=== PATIENT | male | born 1995 | race Caucasian/White ===

== ENCOUNTER 2023-06-02 08:45 | Outpatient (CLI) | payer OTHER ==
--- NOTE | 2023-06-02 15:04 | XRAY Report ---
PROCEDURE: Hip BILAT INDICATIONS: BILAT HIP PAIN TECHNIQUE: 2 view(s) of the hip were acquired. COMPARISON: MRI of the left hip dated 09/17/2022 FINDINGS: Bones: No fractures or dislocations. No suspicious bony lesions. The visualized pelvic ring appear s intact. Soft tissues: No suspicious soft tissue calcifications or masses. IMPRESSION: No acute bony abnormality. If there remains a high clinical concern for fracture, consider cross-sect ional imaging now. If pain persists, consider repeat x-ray in 10-14 days or cross-sectional imaging. Reviewed by: Sienna Hansen MD on 06/02/2023 3:03 PM PST Approved by: Sienna Hansen MD on 06/02/2023 3:03 PM PST Station ID: [id number]
== END 2023-06-02 08:46 | disposition home or self-care (01) ==
LOC: DI.WOS 08:45
PROVIDERS: ATTEND Physician Assistant Surgical
DX: M24.851 Other specific joint derangements of right hip, not elsewhere classified (principal); M25.551 Pain in right hip

== ENCOUNTER 2023-11-04 10:26 | Outpatient (CLI) | payer OTHER ==
--- NOTE | 2023-11-04 11:35 | Sleep Patient Instructions ---
Sleep Center Visit Summary - Patient Visit Information Reason for Visit: Initial consult for evaluation of sleep disordered breathing and other sleep issues. - Patient Instructions Instructions Attached: Sleep Study Additional Instructions: You will be completing a sleep study, either an in-lab polysomnography (PSG) or home sleep study (HST). You will follow-up in the sleep care office after the sleep study is completed to hear the results and talk about therapy, if needed. You will be called by our office staff to schedule this appointment, but you may contact us with any questions. - Clinic Information Contact: [facility] [address] [place] [address] [email or web address] T: [phone]
--- NOTE | 2023-11-04 11:38 | SLEEP CARE CONSULTATION ---
Information from patient questionnaire entered by Angela Duque. I have reviewed and concur with the information entered by Angela Duque. This document represents the service I personally performed and the decisions made by me, Joy Lee ARNP. History of Present Illness Service Date and Time: 11/04/2023 1026 Reason for Visit: New patient Chief Complaint: reports: Unrefreshed sleep, Snoring, Excessive daytime sleepiness, Fatigue, Frequent awakenings at night Date of Onset: 2019 Usual bedtime: 1999 Time it takes to fall asleep: 20MIN Snores at night: Yes Observed to quit breathing while asleep: Yes Sleeps alone due to snoring: Yes Number of times waking at night: 3 Reasons for waking at night: reports: Choking, Gasping for air, Other (UNKNOWN) Toss, Turn, or Twitch while sleeping: Yes Recalls having dreams: Yes Usually gets out of bed at: 0530 Feels refreshed in the morning: No Morning headache: Yes Sleepy or fatigued during the day: Yes Ever fallen asleep while driving: Yes Takes day naps: Yes Dreams during day naps: Yes Prior sleep studies: No Additional HPI information: I had the pleasure of seeing BLAZE PRADO today regarding the possibility of him having a sleep disorder. His current complaints are excessive daytime sleepiness, fatigue, frequent night awakenings, snoring and unrefreshed sleep. He says he is always tired and cannot drive very long without getting drowsy. He twitches at night in his sleep according to who is worried about him. He says he wakes up throughout night, sometimes gasping for air. He does snore loud enough that his will sleep in separate room. The patient tells me that he normally goes to bed around 8 pm, and it takes him approximately 20 minutes to fall asleep. He has been told that he snores loudly and irregularly at night. He has not been observed to stop breathing in his sleep. His bed partner has to sleep in another room due to the loudness of his snoring. He can recall waking up on the average of 2-3 times during the night. His had noted more wake-ups that he does not remember. Most of the time he wakes up because of unknown reasons and with a very dry throat. He has occasionally awakened for his own snoring, choking, and having to gasp for air. There is a lot of tossing and turning in his sleep. Generally he can recall having dreams. He usually wakes up at 0530 and does not feel refreshed. He usually does have a morning headache about 3-4 days a week. They resolve by mid-morning without medication. During the day he complains of feeling sleepy and fatigued. He has fallen asleep while driving and has gone out of the [place], no accident. He usually naps for about 60 minutes during his lunch hour during the day. If he naps, upon falling asleep during the day he reports having vivid dreams. There is no somniloquy (sleep talking) or somnambulism (sleep walking). He reports having impaired concentration during the day. - Parasomnia Symptoms Ever been unable to move upon waking from sleep: Yes Walks in sleep: No Talks in sleep: No Ever acted out dreams in sleep: Yes Ever felt weak in the knees when startled or emotional: Yes Bothered by creepy, crawly, restless sensations in legs: Yes Problems with memory or concentration: Yes (both) Subjective Initial Pelham Sleepiness Scale score: 24 (11/03/23) Past Medical History Past Medical History: reports: Other (bilateral carpal tunnel) Social History The patient's occupation is a [employer]. Patient is and lives in . Have you smoked in the past 12 months: Yes Cigarettes per day (20/pack): 10 Years of smokin Quit date: 09/2023 Smoking Pack Years: 0.5 Alcohol use: Yes Alcohol amount and frequency: 2 DRINKS TWICE A MONTH Caffeine use: Yes Caffeine amount and frequency: 2 CANS DAILY Family History Family history of sleep disordered breathing: No Allergies and Home Medications Known drug allergies: No Drug allergies reviewed: Yes Home medication list reviewed: Yes (has lotion and anti-inflammatory for carpal tunnel - not taking) Allergy and home medication list: Allergies No Known Drug Allergies Allergy (Verified 11/04/23 10:47) Home Medications Medication Instructions Recorded Confirmed Last Taken Type No Known Home Medications 11/04/23 11/04/23 Unknown History Review of Systems Weight gain over past 5 years: 5 Weight loss over past 5 years: 5 Cardiovascular: denies: high blood pressure Gastrointestinal: reports: diarrhea, abdominal pain Neurological: reports: headaches, disorientation, gait or balance problems Psychiatric: denies: anxiety, depression Ear/Nose/Throat: reports: dry mouth/throat, wisdom teeth removed. denies: tonsillectomy Endocrine: reports: sluggishness, unexplained weakness Musculoskeletal: reports: joint pain, back pain, muscle pain or cramping, mobility problems Physical Exam Vital signs obtained and entered by: ANGELA Webster MA Blood Pressure: 130/69 (LEFT ARM) Cuff size: regular Heart Rate: 66 O2 Saturation: 98 Height: 5 ft 5 in Weight: 167 lb 6.4 oz (boots/fatigues) Body Mass Index: 27.8 BMI Classification: Overweight Neck circumference: 15 Nostrils: patent to airflow Mouth and throat: narrow oropharynx Soft palate: long Hard palate: normal Uvula: normal Uvula visualization: 50% Mallampati Class II Tongue: enlarged in size with teeth nazario on lateral edges Tonsils: small Neck: normal w/o lymphadenopathy or thyromegaly Heart: regular rate and rhythm Lungs: clear bilaterally Impression and Plan 1. Suspected Obstructive Sleep Apnea-Hypopnea Syndrome, as suggested by a history of loud and irregular snoring, gasping or choking in sleep, morning headache, unrefreshed sleep, cognitive impairment, and excessive daytime sleepiness. Narrow oropharynx and obesity are common predisposing factors for obstructive sleep apnea-hypopnea syndrome. I recommend proceeding to polysomnography to confirm the diagnosis and to assess severity. If the patient has significant sleep disordered breathing, a manual CPAP titration study will also be performed to find the optimal treatment pressure. I informed the patient of what the sleep studies involve and after some discussion, obtained agreement to proceed. The pathophysiology of obstructive sleep apnea-hypopnea syndrome was discussed with the patient and health risks of cardiovascular and cerebrovascular disease if not treated. Risks of drowsy driving discussed in detail and patient advised to avoid long distance driving and to hook puller at the first sign of drowsiness. Patient agreed to plan. * Schedule polysomnography * Avoid long distance driving or driving when feeling sleepy. * Avoid alcohol, sedative and muscle relaxant around bedtime. * Attempt to lose weight. * Review instructions provided by trained office staff on how to prepare for the sleep study. * Return for follow-up after sleep study completed. Counseling Topics: Weight loss health impact Plan: PSG/HST and followup Visit Type: In Office Time Spent with Patient (minutes): 30 Provider Statement: I spent 100% of the Face to Face Visit with the patient with greater than 50% spent counseling the patient and coordination of care.
[2023-11-04 11:43] VITALS: BP 130/69; O2SAT 98
== END 2023-11-04 10:27 | disposition home or self-care (01) ==
LOC: SC 10:26
PROVIDERS: ATTEND Nurse Practitioner Family
DX: R06.83 Snoring (principal); R51.9 Headache, unspecified; G47.8 Other sleep disorders; R41.89 Other symptoms and signs involving cognitive functions and awareness; G47.10 Hypersomnia, unspecified
CPT/HCPCS: 99203; 99212

== ENCOUNTER 2023-11-11 11:15 | Outpatient (CLI) | payer OTHER | END 2023-11-11 11:16 | disposition home or self-care (01) | LOC: SC 11:15 | PROVIDERS: ATTEND Nurse Practitioner Family | DX: R09.02 Hypoxemia (principal) | CPT/HCPCS: 95806 ==

== ENCOUNTER 2023-12-10 08:54 | Outpatient (CLI) | payer OTHER ==
--- NOTE | 2023-12-10 09:28 | Sleep Patient Instructions ---
Sleep Center Visit Summary - Patient Visit Information Reason for Visit: Sleep study follow-up - Patient Instructions Additional Instructions: Your sleep study today was negative for significant sleep disordered breathing. However, you did have elevated respiratory episodes when sleeping on your back. You should avoid sleeping on your back to control these respiratory episodes. You were found to have episodes of snoring. There are different ways to control snoring including weight loss, oral devices made by a dentist or surgical options through ENT specialist. You should not use oral devices that do not fit properly because they can affect your bite. You should also check insurance coverage of oral devices for snoring because they may not be cover well. You may obtain a referral to an ENT specialist through your primary provider. You will be completing a sleep study in-lab polysomnography with possible MSLT the next day if you qualify for further evaluation of your sleep. You will follow-up in the sleep care office after the sleep study is completed to hear the results and talk about therapy, if needed. You will be called by our office staff to schedule this appointment, but you may contact us with any questions. - Clinic Information Contact: [facility] [address] [place] [address] [email or web address] T: [phone]
[2023-12-10 09:37] VITALS: BP 139/91; O2SAT 98
--- NOTE | 2023-12-10 09:37 | SLEEP CARE CONSULTATION ---
Information from patient questionnaire entered by Angela Duque. I have reviewed and concur with the information entered by Angela Duque. This document represents the service I personally performed and the decisions made by , Joy Lee ARNP. History of Present Illness Service Date and Time: 12/10/2023 0854 Initial [place] Sleepiness Scale score: 24 (11/03/23) Current [place] Sleepiness Scale score: 23 (12/10/23) Additional HPI information: BLAZE PRADO returns for follow up and results of the recently performed home sleep study done on 11/11/23. The patient was informed of the following findings: No significant sleep disordered breathing with an average AHI of 3.9 and zach oxygen saturation of 87%. His supine AHI was mildly elevated at 6.1. I explained the pathophysiology behind obstructive sleep apnea. Patient does not have sleep apnea and was advised how weight gain could increase the risk of developing sleep apnea in the future. I strongly encouraged the patient to lose weight. Patient does not have significant sleep disordered breathing but has elevated AHI in supine position so advised positional therapy. Methods to achieve positional management therapy were discussed; such as, positioning with pillows, wearing a T-shirt with tennis balls sewn into the back or commercially available products. Patient has moderate snoring. Snoring can be reduced by weight loss. Weight loss is best achieved with diet consult. Patient instructed to contact PCP for referral. Snoring can also be treated with an oral appliance from a dentist. Advised to check insurance coverage. In addition, an ENT evaluation can be do to see if other treatment is indicated. Patient counseled not drink alcohol less than 4 hours before bedtime as it can increase snoring and apnea. Patient was cautioned about risks of drowsy driving until sleepiness symptoms resolve. Sleep Study - Results Type of Sleep Study: Home sleep study (COMPLETED 11/11/23) Prior sleep studies: No Polysomnography/Home Sleep Study results: Physician Impression: The quality of the study is fair due to partial loss of pulse oximetry signal. The length of the study is adequate (> 240 minutes). Please also see the tabulated and graphic data. 1. No significant sleep disordered breathing with an AHI of 3.9/hr and zach SaO2 of 87%. During the study, the patient had 9 apneas (9 obstructive, 0 central, 0 mixed) and 23 hypopneas. The longest episode lasted 190.0 seconds. The respiratory events occurred only during supine sleep (supine AHI was 6.1 and non-supine, 0.00). 2. Hypoxemia (ICD-10 R09.02), minimal, with the lowest oxygen saturation of 87 % and 2.6 minutes with SaO2 under 90%. Baseline oxygen saturation was normal (Average oxygen saturation was 94%). Allergies and Home Medications Known drug allergies: No Drug allergies reviewed: Yes Home medication list reviewed: Yes (no changes) Allergy and home medication list: Allergies No Known Drug Allergies Allergy (Verified 12/10/23 08:56) Review of Systems Review of systems same as previous: Yes (NO CHANGE) Physical Exam Vital signs obtained and entered by: ANGELA Webster MA Blood Pressure: 139/91 (LEFT ARM) Cuff size: regular Heart Rate: 71 O2 Saturation: 98 Height: 5 ft 5 in Weight: 155 lb Weight change since last visit: 12 lb loss Body Mass Index: 25.7 BMI Classification: Overweight Impression and Plan 1. Excessive daytime sleepiness. Patient states he has severe daytime sleepiness and is falling asleep at work. He has a lot of drowsy driving and will "blackout "sometimes when driving. He says he can kind of feel a narrowing of his vision which tells him he will fall asleep. He cannot keep himself from falling asleep at these times. His [place] score is 23/24. His HST was fair due to partial loss of pulse oximetry. 2. Suspected Obstructive Sleep Apnea-Hypopnea Syndrome, as suggested by a histor y of loud and irregular snoring, observed cessation of breath while asleep, gasping or choking in sleep, morning headache, frequent awakening during the night, unrefreshed sleep, and excessive daytime sleepiness. I recommend proceeding to polysomnography to confirm the diagnosis and to assess severity. I also will add an MSLT to rule out possible narcolepsy which is suggested by his history. I obtained agreement to proceed. The pathophysiology of obstructive sleep apnea-hypopnea syndrome was discussed with the patient and health risks of cardiovascular and cerebrovascular disease if not treated. Risks of drowsy driving discussed in detail and patient advised to avoid long distance driving and to candy puller at the first sign of drowsiness. Patient agreed to plan. 3. Snoring but no significant sleep disordered breathing. However, his supine AHI was elevated and he should avoid sleeping supine. Patient advised that often weight loss will reduce snoring as well as apnea risk. An oral appliance can also be used for snoring. This would require a dental consultation. Patient cautioned not to use other online appliances as can cause bite issues. A list of accredited dentists in area and one local dentist who makes oral appliances given. Patient is advised to check if insurance will cover. An ENT consult can also be helpful to determine if any other treatment is an option. 4. Overweight, mild. Currently patients BMI is 25.7. Obesity increases the risk of apnea, CPAP pressure requirements and overall health risks especially cardiovascular and diabetes. Thus patient is advised to maintain a healthy weight. * PSG with possible MSLT * Avoid supine sleep * Maintain a healthy weight * Avoid alcohol consumption near bedtime * The patient is cautioned about driving until sleepiness is completely resolved. * Return after sleep study for results review. Counseling Topics: Sleeping position Plan: PSG with MSLT and follow up Visit Type: In Office Time Spent with Patient (minutes): 25 Provider Statement: I spent 100% of the Face to Face Visit with the patient with greater than 50% spent counseling the patient and coordination of care.
== END 2023-12-10 08:55 | disposition home or self-care (01) ==
LOC: SC 08:54
PROVIDERS: ATTEND Nurse Practitioner Family
DX: G47.10 Hypersomnia, unspecified (principal); R06.83 Snoring; R06.81 Apnea, not elsewhere classified; G47.8 Other sleep disorders; R51.9 Headache, unspecified; E66.3 Overweight; Z68.25 Body mass index [BMI] 25.0-25.9, adult
CPT/HCPCS: 99212; 99213